=== PATIENT | female | born 1960 | race Hispanic/Latino ===

== ENCOUNTER 2024-03-01 14:40 | Emergency (ER) | payer BC ==
[~2024-03-01] VITALS: Ht 170.2 cm; Wt 84.4 kg
[2024-03-01 15:33] LABS: RAPID GROUP A STREP negative (NEGATIVE)
[2024-03-01 15:36] LABS: SARS-CoV-2, RNA, NAAT NEGATIVE SARS CoV-2 (NEGATIVE)
[2024-03-01 15:49] LABS: INFLUENZA TYPE A NEGATIVE FOR TYPE A (NEG); INFLUENZA TYPE B NEGATIVE FOR TYPE B (NEG)
[2024-03-01 16:13] VITALS: BP 166/78; PULSE 78; RESP 16; O2SAT 99
[2024-03-01] MEDS ORDERED: KETO10TA2 PO (16:21)
[2024-03-01] MEDS ORDERED: AZIT500T4 PO (16:21)
[2024-03-01] MEDS ORDERED: METH4TAB3 PO (16:21)
== END 2024-03-01 16:16 | disposition home or self-care (01) ==
LOC: EDH 14:40
DX: B34.9 Viral infection, unspecified (principal); R51.9 Headache, unspecified; K21.9 Gastro-esophageal reflux disease without esophagitis; Z20.822 Contact with and (suspected) exposure to COVID-19
CPT/HCPCS: 87635; 87804; 87880